=== PATIENT | male | born 1960 | race Caucasian/White ===

== ENCOUNTER 2019-06-09 07:34 | Outpatient (CLI) | payer OTHER ==
[~2019-06-09 07:34] MED LIST: PEPCID20 MG PO
== END 2019-06-09 07:36 | disposition home or self-care (01) ==
LOC: RAD 07:34
DX: N30.00 Acute cystitis without hematuria (principal)

== ENCOUNTER 2019-06-30 07:29 | Outpatient (CLI) | payer OTHER | END 2019-06-30 07:31 | disposition home or self-care (01) | LOC: SONOGRAMA 07:29 | DX: E04.1 Nontoxic single thyroid nodule (principal) ==